=== PATIENT | female | born 1945 | race Caucasian/White ===

== ENCOUNTER → 2023-11-22 15:00 | Outpatient (REF) | payer MEDICARE, OTHER, SELFPAY | LOC: DHCBC MAIN 15:00 | PROVIDERS: ATTENDING PHYSICIAN Internal Medicine; FAMILY PHYSICIAN Family Medicine | DX: I50.21 Acute systolic (congestive) heart failure (principal) | CPT/HCPCS: 93306 ==

== ENCOUNTER 2024-02-27 20:20 | Emergency (ER) | payer MEDICARE, OTHER, SELFPAY ==
[2024-02-27 20:22] VITALS: BP 174/103
[2024-02-27 20:36] LABS: % Basophils 0.6 % (0-2); % Eosinophils 2.5 % (0-6); % Immature Granulocytes 0.2 % (0-0.5); % Lymphocytes 20.9 % (20.5-51.1); % Monocytes 8.5 % (1.7-9.3); % Neutrophils 67.3 % (42.2-75.2); Absolute Basophils 0.1 10^3/uL (0-0.2); Absolute Eosinophils 0.2 10^3/uL (0-0.7); Absolute Lymphocytes 1.9 10^3/uL (1.2-3.4); Absolute Monocytes 0.8 10^3/uL (0.1-0.6); Absolute Neutrophils 6.1 10^3/uL (1.4-6.5); Hematocrit 34.5 % (37.0-47.0); Hemoglobin 11.2 g/dL (12.0-16.0); Mean Corp Hgb Conc. 32.5 g/dL (33.0-37.0); Mean Corpuscular Hgb 24.3 pg (27.0-31.0); Mean Corpuscular Volume 74.8 fL (81.0-99.0); Mean Platelet Volume 8.8 fL (7.4-10.4); Nucleated Red Blood Cells % 0 %; Platelet Count 229 10^3/uL (130-400); Red Blood Cell Count 4.61 10^6/uL (4.20-5.40); Red Cell Dist. Width 17.2 % (11.5-14.5)
--- NOTE | 2024-02-27 20:50 | ED.GENMED ---
History of Present Illness
General
Chief Complaint: Generalized Pain
Time Seen by Provider: 02/27/24 20:49
History of Present Illness
History of Present Illness:
HPI: Patient presents with generalized pain. She states she has pain in her head but the pain in the head has been going on for about 5 months. It has been worsening. She states that her eyes hurt. She also reports abdominal pain which is also
somewhat chronic and reports history of Crohn's disease. She has myalgias in the extremities. She has tried Tylenol without significant improvement. Daughter states that her weight had increased but she has been having poor p.o. intake.
EXAM:
GENERAL: The patient appears somewhat generally weak but does not appear to be in any significant discomfort
HEENT: Moist oral mucosa
CARDIOVASCULAR: No murmurs, normal heart rate, regular rhythm, No chest wall tenderness
PULMONARY: No respiratory distress, breath sounds are clear and equal
ABDOMEN: Soft with no peritoneal signs, no tenderness
NEUROLOGIC: Good strength all extremities, no coordination deficits
PSYCHIATRIC: Appropriate mental status, normal insight and judgement
EXTREMITIES: Nontender, no edema, moves all extremities equally
SKIN: No rash, no lesions
TIME OF INITIAL ENCOUNTER: 8:30 PM
NUMBER AND COMPLEXITY OF PROBLEMS ADDRESSED AT THE ENCOUNTER
� Chronic conditions affecting care: High blood pressure, Crohn's disease, hypothyroidism, breast cancer
� Acute Exacerbation and/or Progression of Chronic Illness: This is an acute problem
� Differential Diagnosis includes: Viral syndrome, exacerbation of chronic headache, exacerbation of Crohn's disease
AMOUNT AND/OR COMPLEXITY OF DATA TO BE REVIEWED AND ANALYZED
� I performed an independent evaluation of and my interpretation is:
EKG:
CT: CT brain shows no acute abnormality; CT of the abdomen pelvis shows a large hiatal hernia but is stable
X-rays:
Laboratory Studies: White count 9.0, hemoglobin 11.2, Chemistries unremarkable, CK is elevated at 563, CRP is less than 5
Other:
� Review of other/old records: Hemoglobin was 12.2 in 2022; the patient was here this past June with shortness of breath�EF at that time was 30 to 35% and was treated for pulmonary edema and was also started on rate control.
� Clinical information was obtained by an independent historian: I spoke to daughter and at bedside
� Prescriptions/Medications Considered but not given:
� Further testing considered but not performed:
RISK OF COMPLICATIONS AND/OR MORBIDITY OR MORTALITY OF PATIENT MANAGEMENT
� Social determinants of health affecting care: Lives at home
� Discussion with other providers:
� Escalation of care including admission/observation vs risk of discharge considered: The patient was given gentle hydration as she does have a history of volume overload left with a EF of 30 to 35%. Her CK is elevated at 563 so
there may be a component of mild rhabdomyolysis.
Past History
Past History
ED Past Medical History: Cancer, HTN and Hypercholesterolemia
ED Past Surgical History: Brain (Aneurysm repair)
Social History
Tobacco: Non-smoker
Alcohol: None
Phy Exam
Physical Exam
Physical Exam:
See HPI
Course
Orders/Labs/Results
Orders:
Orders
02/27/24 20:31
C-Reactive Protein Urgent
Comment: ADD ON
CMP [Comprehensive Metabolic Panel] Urgent
Complete Blood Count/With Diff Urgent
Creatine Phosphokinase Urgent
Comment: ADDON
02/27/24 21:02
Add On- LAB Urgent
Tests Added?: cRP and CK
CT Abd/pelvis W Iv Cont Urgent
Comment:
Reason For Exam: diffuse abd pain
CT Head W/o Iv Contrast Urgent
Comment:
Reason For Exam: severe POLLOCK
0.9% Sodium Chloride 250 ml [Nss] 250 ml IV BOLUS
02/27/24 21:03
Acetaminophen [Tylenol] 1,000 mg PO NOW STA
02/27/24 23:30
Amitriptyline [Elavil] 10 mg PO NOW STA
Ketorolac [Toradol] 15 mg IV NOW STA
Abnormal Lab Results
02/27/24
20:31
Hgb 11.2 L g/dL
(12.0-16.0)
Hct 34.5 L %
(37.0-47.0)
MCV 74.8 L fL
(81.0-99.0)
MCH 24.3 L pg
(27.0-31.0)
MCHC 32.5 L g/dL
(33.0-37.0)
RDW 17.2 H %
(11.5-14.5)
Absolute Monos (auto) 0.8 H 10^3/uL
(0.1-0.6)
BUN 30 H mg/dl
(7-17)
Glucose 114 H mg/dl
(70-99)
Creatine Kinase 563 H U/L
(30-135)
02/27/24 20:31
02/27/24 20:31
Vital Signs
Initial and Last Documented VS:
Initial Vital Signs
Temp Pulse Resp BP Pulse Ox
98.2 F 83 19 174/103 98
02/27/24 20:22 02/27/24 20:22 02/27/24 20:22 02/27/24 20:22 02/27/24 20:22
Last Documented Vital Signs
Temp Pulse Resp BP Pulse Ox
98.2 F 76 16 177/82 95
02/27/24 20:22 02/27/24 22:53 02/27/24 22:53 02/27/24 22:53 02/27/24 22:53
*Critical Care Note
Total Time (30-74mins, 75-104mins- exclusive of procedures): Not Applicable
ED Attending Note
-
Portions of this chart may have been created with voice recognition software.� Occasional wrong word or��sound alike� substitutions may have occurred due to the inherent limitations of voice recognition software.
Discharge Plan
Departure
Patient Disposition: Home (Routine Discharge)
Date of Disposition: 02/27/24
Time of Disposition: 23:32
Patient with high blood pressure during this ER visit?: Yes
Discharge Problem:
Headache
Instructions: Chronic Pain (DC), BLOOD PRESSURE
Prescriptions:
No Action
ketoconazole 2 % Shampoo
1 applic TOPICAL UD
Patient Comments:
07/05/2023, patient states that they use this medication 'a couple times a week'.
acetaminophen [Tylenol Extra Strength] 500 mg Tablet
1,000 mg PO DAILY
acetaminophen [Tylenol Extra Strength] 500 mg Tablet
1,000 mg PO BIDPRN PRN (Reason: mild pain)
levothyroxine 125 mcg Tablet
125 mcg PO DAILY AT 0700
triamcinolone acetonide 0.1 % Ointment
1 applic TOPICAL PRN PRN (Reason: apply to rash flares on B/L legs)
omeprazole 20 mg Capsule,Delayed Release(Dr/Ec)
20 mg PO DAILY
gabapentin 100 mg Capsule
300 mg PO HS
sertraline 50 mg Tablet
50 mg PO DAILY
mesalamine 1.2 gram Tablet,Delayed Release (Dr/Ec)
2.4 g PO BID
calcium carbonate-vitamin D3 500 mg-3.125 mcg (125 unit) Tablet
1 tab PO DAILY
cholecalciferol (vitamin D3) 50 mcg (2,000 unit) Tablet
50 mcg PO DAILY
Gemtesa 75 mg Tablet
75 mg PO DAILY@1999
Rx Instructions:
PT TAKES AFTER DINNER TO HELP WITH NIGHT TIME URINATION ISSUES. SHE HAS TRIED OXYBUTYNIN WHICH DID NO HELP.
aspirin [Children's Aspirin] 81 mg Tablet,Chewable
81 mg PO DAILY Qty: 30 0RF
metoprolol succinate 25 mg Tablet Extended Release 24 Hr
25 mg PO DAILY Qty: 30 0RF
potassium chloride 20 mEq Tablet,Er Particles/Crystals
20 meq PO DAILY Qty: 30 0RF
furosemide 20 mg Tablet
20 mg PO DAILY Qty: 30 0RF
Farxiga 10 mg Tablet
10 mg PO DAILY Qty: 30 0RF
losartan 25 mg Tablet
25 mg PO DAILY Qty: 30 0RF
Referrals:
Micheal Arriola DO [Family Provider] -
Activity Restrictions/Additional Instructions:
The cause of your symptoms is unclear. We gave a dose of Tylenol then Toradol. We also gave a dose of IV fluids. Your CK level (creatinine kinase) is somewhat elevated but not to the point that I would say is a case of rhabdomyolysis. We did
give some IV fluids to help. In addition to Tylenol, we gave a dose of Toradol and amitriptyline. I did not prescribe amitriptyline as you are still taking potassium supplementation. Your potassium level is perfect at 4.0. Follow-up your primary
care doctor for reassessment and also blood pressure recheck.
Interventions
Interventions:
*Risk Screen - Suicide Last Done: 02/27/24 20:22
*General Assessment Last Done: 02/27/24 20:22
*Neglect/Abuse Screening Last Done: 02/27/24 20:22
*ED COVID-19 Vaccine History Last Done: 02/27/24 20:22
Discharge Date and Time
Print Language: [id number]
[2024-02-27 20:53] LABS: ALT (SGPT) 13 U/L (0-35); AST (SGOT) 19 U/L (14-36); Albumin 4.5 g/dl (3.5-5.0); Alkaline Phosphatase 67 U/L (38-126); Blood Urea Nitrogen 30 mg/dl (7-17); Calcium 9.5 mg/dl (8.4-10.2); Carbon Dioxide 22 mmol/L (22-30); Chloride 107 mmol/L (98-107); Glucose 114 mg/dl (70-99); Sodium 139 mmol/L (135-145); Total Bilirubin 0.6 mg/dl (0.2-1.3); Total Protein 7.1 g/dl (6.3-8.2); eGFR 57.66
[2024-02-27 21:07] VITALS: BMI 28.2
[2024-02-27] MEDS: TYLENOL 1000 MG PO (21:09)
[2024-02-27 21:23] VITALS: BP 173/88
[2024-02-27 21:44] LABS: Creatine Phosphokinase 563 U/L (30-135)
[2024-02-27] MEDS: NSS 250 IV (21:45)
[2024-02-27 21:51] LABS: C-Reactive Protein < 5.00 mg/L (0.0-10.00)
[2024-02-27 22:53] VITALS: BP 177/82
[2024-02-27] MEDS: TORADOL 15 MG IV (23:40)
[2024-02-27] MEDS: ELAVIL 10 MG PO (23:56)
== END 2024-02-28 00:07 | disposition home or self-care (01) ==
LOC: EMR 20:20
PROVIDERS: Emergency Medicine; EMERGENCY PHYSICIAN Emergency Medicine; FAMILY PHYSICIAN Family Medicine
DX: R51.9 Headache, unspecified (principal); R10.9 Unspecified abdominal pain; K50.90 Crohn's disease, unspecified, without complications; M79.10 Myalgia, unspecified site; E78.00 Pure hypercholesterolemia, unspecified; I10 Essential (primary) hypertension; Z85.3 Personal history of malignant neoplasm of breast; Z86.79 Personal history of other diseases of the circulatory system; Z90.49 Acquired absence of other specified parts of digestive tract
CPT/HCPCS: 99284; 96374; 70450; 74177; 80053; 82550; 85025; 86140; Q9967

== ENCOUNTER → 2024-09-19 07:10 | Outpatient (REF) | payer MEDICARE, OTHER, SELFPAY | LOC: HWRCS 07:10 | PROVIDERS: ATTENDING PHYSICIAN Internal Medicine; FAMILY PHYSICIAN Family Medicine | DX: I50.22 Chronic systolic (congestive) heart failure (principal); I35.0 Nonrheumatic aortic (valve) stenosis | CPT/HCPCS: 93306 ==

== ENCOUNTER 2025-02-22 06:16 | Day surgery (SDC) | payer MEDICARE, OTHER, SELFPAY ==
[2025-02-22 08:04] VITALS: BP 153/82
[2025-02-22 08:09] VITALS: BMI 24.9
[2025-02-22 09:54] VITALS: BP 122/91; BP 136/116
[2025-02-22 09:55] VITALS: BP 150/71
[2025-02-22 10:00] VITALS: BP 137/59
[2025-02-22 10:16] VITALS: BP 130/84
== END 2025-02-22 10:35 | disposition home or self-care (01) ==
LOC: SDS 06:16
PROVIDERS: ATTENDING PHYSICIAN Internal Medicine Gastroenterology
DX: D50.9 Iron deficiency anemia, unspecified (principal); K57.30 Diverticulosis of large intestine without perforation or abscess without bleeding; K64.8 Other hemorrhoids
CPT/HCPCS: 45378